=== PATIENT | male | born 1975 | race Asian ===

== ENCOUNTER 2017-04-23 14:40 | Emergency (ER) | payer OTHER ==
[~2017-04-23] VITALS: Ht 162.6 cm; Wt 100.0 kg
[2017-04-23] MEDS ORDERED: ATOR10TA84 PO (16:07)
[2017-04-23] MEDS ORDERED: LISI-660 PO (16:07)
[2017-04-23] MEDS ORDERED: METF500T4 PO (16:07)
[2017-04-23 16:22] LABS: GLUCOSE,POINT OF CARE 299 MG/DL (70-110)
[2017-04-23] MEDS ORDERED: DIAZEPAM 5 MG TABLET PO ONE (16:45)
[2017-04-23 18:54] VITALS: BP 128/76
== END 2017-04-23 18:55 | disposition home or self-care (01) ==
LOC: EMS 14:41
DX: M62.838 Other muscle spasm (principal); J45.909 Unspecified asthma, uncomplicated; E11.9 Type 2 diabetes mellitus without complications; I10 Essential (primary) hypertension
CPT/HCPCS: 82962; 99283